=== PATIENT | female | born 2000 | race African-American/Black ===

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

== ENCOUNTER 2018-11-29 09:11 | Emergency (ER) | payer OTHER ==
[~2018-11-29] VITALS: Ht 166.4 cm; Wt 72.6 kg
[~2018-11-29 09:11] MED LIST: IBUP-1060 PO; METR500T PO
[2018-11-29 09:30] VITALS: BP 157/60
--- NOTE | 2018-11-29 10:00 | PHYS DOC ---
Past Medical History Past Medical History: Bipolar, Depression Additional Past Medical Histor: HERPES Past Surgical History: No Surgical History Alcohol Use: Occasionally Drug Use: Marijuana Adult General Chief Complaint Chief Complaint: OTHER COMPLAINTS HPI HPI Patient is a 18 year old female who presents to the ER with nausea and abdominal pain. The patient states that she is 22 weeks . The abdominal pain started this morning. Has been having nausea intermittently throughout her entire . Review of Systems Review of Systems Constitutional: Denies fever or chills [] Eyes: Denies change in visual acuity, redness, or eye pain [] HENT: Denies nasal congestion or sore throat [] Respiratory: Denies cough or shortness of breath [] Cardiovascular: No additional information not addressed in HPI [] GI: Reports abdominal pain, nausea, vomiting Denies bloody stools or diarrhea [] : Denies dysuria or hematuria [] Musculoskeletal: Denies back pain or joint pain [] Integument: Denies rash or skin lesions [] Neurologic: Denies headache, focal weakness or sensory changes [] Endocrine: Denies polyuria or polydipsia [] Complete systems were reviewed and found to be within normal limits, except as documented in this note. Allergies Allergies Allergies Coded Allergies Type Severity Reaction Last Updated Verified No Known Drug Allergies 04/30/14 No Physical Exam Physical Exam Constitutional: Well developed, well nourished, no acute distress, non-toxic appearance. [] HENT: Normocephalic, atraumatic, bilateral external ears normal, oropharynx moist, no oral exudates, nose normal. [] Eyes: PERRLA, EOMI, conjunctiva normal, no discharge. [] Neck: Normal range of motion, no tenderness, supple, no stridor. [] Abdomen: Bowel sounds normal, soft, tenderness, no masses, no pulsatile masses. [] Skin: Warm, dry, no erythema, no rash. [] Back: No tenderness, no CVA tenderness. [] Extremities: No tenderness, no cyanosis, no clubbing, ROM intact, no edema. [] Neurologic: Alert and oriented X 3, normal motor function, normal sensory function, no focal deficits noted. [] Psychologic: Affect normal, judgement normal, mood normal. [] EKG EKG [] Radiology/Procedures Radiology/Procedures [] Course & Med Decision Making Course & Med Decision Making Pertinent Labs and Imaging studies reviewed. (See chart for details) Patient is 22 weeks with acute abdominal pain. The patient is stable, however appears like patient would benefit from going to labor and delivery for evaluation. Discussed sending patient to labor and delivery with nursing staff who will send patient upstairs. Dragon Disclaimer Dragon Disclaimer This electronic medical record was generated, in whole or in part, using a voice recognition dictation system. Departure Departure Impression: Primary Impression: Abdominal pain affecting Disposition: 05 TRANSFER OTHER (sent to labor and delivery) Condition: STABLE Referrals: UNKNOWN PCP NAME (PCP) SHAY LOZA APRN Nov 29, 2018 09:59
== END 2018-11-29 10:15 | disposition home or self-care (01) ==
LOC: ER 09:11
DX: O26.891 Other specified pregnancy related conditions, first trimester (principal); R10.9 Unspecified abdominal pain; O21.9 Vomiting of pregnancy, unspecified; O99.342 Other mental disorders complicating pregnancy, second trimester; F31.9 Bipolar disorder, unspecified; Z3A.22 22 weeks gestation of pregnancy
CPT/HCPCS: 99285-25

== ENCOUNTER 2018-11-29 09:48 | Observation (INO) | payer OTHER ==
[2017-12-01 08:35] VITALS: BP 120/68
[2018-11-29] MEDS ORDERED: IV RINGERS,LACTATED 1000ML 1,000 ML IV SCH (10:17)
[2018-11-29 10:45] LABS: BILIRUBIN,URINE NEGATIVE (NEG); CLARITY,URINE CLOUDY; COLOR,URINE AMBER; NITRITE,URINE NEGATIVE (NEG); PROTEIN,URINE 30 mg/dL (NEG-TRACE)
[2018-11-29 10:50] LABS: SQUAMOUS EPITHELIAL CELL,UR MOD /LPF
[2018-11-29 10:52] LABS: BACTERIA,URINE MODERATE /HPF (0-FEW); RBC,URINE 0 /HPF (0-2)
[2018-11-29] MEDS: IV DEXTROSE 5%-LACT RINGERS 1,000 ML IV SCH ×2 (11:30→12:43)
== END 2018-11-29 15:18 | disposition home or self-care (01) ==
LOC: 3 SO LND 09:48
PROVIDERS: ADMIT Specialist; ATTEND Specialist
DX: O21.2 Late vomiting of pregnancy (principal); Z3A.24 24 weeks gestation of pregnancy
CPT/HCPCS: 81001; 87086; 96360; 96361; G0378; G0379

== ENCOUNTER 2019-03-20 05:51 | Inpatient (IN) | payer OTHER ==
[~2019-03-20] VITALS: Ht 166.4 cm; Wt 65.3 kg
[2019-03-20] MEDS ORDERED: IBUPROFEN 400 MG TABLET. PO PRN ×2 (06:30→15:30)
[2019-03-20] MEDS ORDERED: AMPICILLIN SODIUM 2 GM in IV NORMAL SALINE 100ML 100 ML IV ONE (06:30)
[2019-03-20] MEDS ORDERED: TERBUTALINE 1 MG/ML VIAL. SQ PRN (06:30)
[2019-03-20] MEDS ORDERED: ONDANSETRON PF 4 MG/2 ML VIAL. IV PRN ×2 (06:30→10:30)
[2019-03-20] MEDS ORDERED: BUTORPHANOL 2 MG/ML VIAL. IV PRN (06:30)
[2019-03-20] MEDS ORDERED: OXYTOCIN 30 UNIT/500 ML PREMIX 500 ML IV PRN ×3 (06:30→15:30)
[2019-03-20] MEDS ORDERED: 0.9 % SODIUM CHLORIDE 10 ML DISP.SYRIN. IV PRN ×2 (06:30→15:30)
[2019-03-20] MEDS ORDERED: LIDOCAINE 1% PF 30 ML VIAL. INJ PRN (06:30)
[2019-03-20 06:58] LABS: BASO # 0.1 x10^3/uL (0.0-0.2); BASO % 1 % (0-3); EOS % 0 % (0-3); HEMATOCRIT 31.3 % (36.0-47.0); HEMOGLOBIN 10.1 g/dL (12.0-15.5); LYMPH # 1.2 x10^3/uL (1.0-4.8); LYMPH % 14 % (24-48); MEAN CORPUSCULAR HEMOGLOBIN 27 pg (25-35); MEAN CORPUSCULAR HGB CONC 32 g/dL (31-37); MEAN CORPUSCULAR VOLUME 85 fL (79-100); MONO # 0.8 x10^3/uL (0.0-1.1); MONO % 9 % (0-9); NEUT # 6.5 x10^3/uL (1.8-7.7); NEUT % 76 % (31-73); PLATELET COUNT 174 x10^3/uL (140-400); RED BLOOD COUNT 3.68 x10^6/uL (3.50-5.40); RED CELL DISTRIBUTION WIDTH 13.6 % (11.5-14.5); WHITE BLOOD COUNT 8.5 x10^3/uL (4.0-11.0)
[2019-03-20] MEDS: IV RINGERS,LACTATED 1000ML 1,000 ML IV SCH ×2 (07:38→14:30)
[2019-03-20] MEDS ORDERED: IV RINGERS,LACTATED 1000ML 1,000 ML IV SCH (10:25)
[2019-03-20] MEDS ORDERED: ROPIVacaine 0.2% PF 10 ML VIAL. ONE ×2 (10:28→11:00)
[2019-03-20] MEDS ORDERED: fentaNYL PF VIAL 100 MCG/2 ML VIAL EPID PRN (10:30)
[2019-03-20] MEDS ORDERED: NALOXONE 0.4 MG/ML VIAL. IV PRN (10:30)
[2019-03-20] MEDS ORDERED: ROPIVacaine 0.2% IN 0.9%NACL PF 40 MG/20 ML DISP.SYRIN. EPID PRN (10:30)
[2019-03-20] MEDS ORDERED: BUPIVACAINE MPF 0.25% 30 ML VIAL. EPID PRN (10:30)
[2019-03-20] MEDS: L&D EPIDURAL SYRINGE 50 ML EPID PRN ×2 (10:57→13:56)
[2019-03-20] MEDS: AMPICILLIN SODIUM 1 GM in IV NORMAL SALINE 50ML 50 ML IV SCH ×3 (11:33→18:30)
[2019-03-20] MEDS ORDERED: MMR per PROTOCOL. MC PRN (15:19)
--- NOTE | 2019-03-20 15:22 | PDOC ---
VAGINAL DELIVERY DATE DATE: 03/20/19 TIME: 15:19 : 1 EDC: Mar 18, 2019 VAGINAL DELIVERY: VTX VACCUM ASSISTED: No PLACENTA: Spontaneous SEX: Male WEIGHT 8#3oz Nuchal Cord: Yes, Times 1, Loose Amniotic Fluid: Clear PAIN: Epidural EPISIOTOMY: No EXTENSION: No EBL 300cc COMPLICATIONS None CONDITION Stable Signs of Intrauterine Infectio: None Shoulder Dystocia: No DIAGNOSIS TISAM Durbin MD Mar 20, 2019 15:22
--- NOTE | 2019-03-20 15:27 | PDOC1 ---
OB - History Hx of Present Care: Good Care Ultrasounds: Normal mid trimester US Obstetrical Complications: None Medical Complications: None Past Family/Social History * Past Medical, Surgical, Family and Obstetric Histories reviewed from chart. Blood Type: O+ Rubella: Immune RPR/VDRL: Negative GBS Status: Negative HBsAG: Negative OB - Chief Complaint & HPI Date of Admission: Date of Admission: Mar 20, 2019 at 05:51 Chief Complaint/History : 1 EDC: Mar 18, 2019 Reason for admission: induction of labor Admission Nurse Assessment Rev: Yes OB - Admission Exam Physical Exam Vitals: VS - Last 72 Hours, by Label Date Time Temp Pulse Resp B/P (MAP) Pulse Ox O2 Delivery O2 Flow Rate FiO2 03/20/19 13:56 18 99 Room Air 03/20/19 10:57 16 98 Room Air HEENT: Normal, Nasal Mucosa Normal, Oropharynx Normal, Moist Membranes, Fontanelles Normal Heart: Regular Rate Lungs: Clear, Equal Abdomen: Gravid Extremities: Normal Pulses, No tenderness or swelling Reflexes: Normal Cervical Dilatation: 2cm Effacement: 25% Station: Ballotable Amniotic Fluid: Clear Heart Rate: Normal Accelerations: Accelerations Present Decelerations: No decelerations Contractions on Admission: >10 Minutes Apart Intensity: Mild Assessment/Plan Assessment/Plan TIUP Induction ACSVD SAM BOLTON MD Mar 20, 2019 15:27
[2019-03-20] MEDS ORDERED: SIMETHICONE 80 MG TAB.CHEW PO PRN (15:30)
[2019-03-20] MEDS ORDERED: ACETAMINOPHEN 325 MG TABLET. PO PRN (15:30)
[2019-03-20] MEDS ORDERED: MAGNESIUM HYDROXIDE 2,400 MG/30 ML ORAL.SUSP. PO PRN (15:30)
[2019-03-20] MEDS ORDERED: HYDROCORTISONE 1% TOPICAL OINTMENT 30GM TUBE. TP PRN (15:30)
[2019-03-20] MEDS ORDERED: diphenhydrAMINE HCL 25 MG CAPSULE PO PRN (15:30)
[2019-03-20] MEDS ORDERED: ZOLPIDEM 5 MG TABLET. PO PRN (15:30)
[2019-03-20] MEDS ORDERED: PHENYLEPH/MINERAL OIL/PETROLAT RECTAL OINTMENT TUBE. RC PRN (15:30)
[2019-03-20] MEDS ORDERED: BENZOCAINE 20% TOPICAL AEROSOL SPRAY 57GM CAN. TP PRN (15:30)
[2019-03-20] MEDS ORDERED: MAG HYDROX/ALUMINUM HYD/SIMETH 30 ML ORAL.SUSP PO PRN (15:30)
[2019-03-20] MEDS: FERROUS SULFATE 325 MG TABLET. PO SCH (17:00)
[2019-03-20] MEDS: IBUPROFEN 400 MG TABLET. PO SCH (17:17)
[2019-03-20 17:30] VITALS: BP 133/73
[2019-03-20 19:40] VITALS: BP 136/63
[2019-03-21] MEDS: IBUPROFEN 400 MG TABLET. PO SCH ×3 (01:20→16:49)
[2019-03-21 04:35] VITALS: BP 123/70
[2019-03-21] MEDS: DOCUSATE SODIUM 100 MG CAPSULE. PO PRN (08:11)
[2019-03-21] MEDS: FERROUS SULFATE 325 MG TABLET. PO SCH ×2 (08:11→16:49)
[2019-03-21 09:28] VITALS: BP 128/87
[2019-03-21 12:22] VITALS: BP 120/71
--- NOTE | 2019-03-21 13:27 | PDOC ---
Provider Note Provider Note Doing well VSS Uterus NTTP FU Pranay Vital Sign - Last 24 Hours 03/20/19 03/20/19 03/20/19 03/20/19 13:56 17:30 19:40 19:40 Temp 98.4 98.8 98.4 98.8 Pulse 78 81 Resp 18 18 16 B/P (MAP) 133/73 (93) 136/63 (87) Pulse Ox 99 100 99 O2 Delivery Room Air Room Air Room Air Room Air 03/21/19 03/21/19 03/21/19 04:35 09:28 12:22 Temp 98.3 97.4 97.8 98.3 97.4 97.8 Pulse 62 64 67 Resp 14 16 16 B/P (MAP) 123/70 (87) 128/87 (101) 120/71 (87) Pulse Ox 100 100 100 O2 Delivery Room Air Room Air Intake and Output 03/20/19 03/20/19 03/21/19 15:00 23:00 07:00 Intake Total 1100 ml Balance 1100 ml CBC - BMP 03/21/19 04:20 SAM BOLTON MD Mar 21, 2019 13:27
[2019-03-21 16:45] VITALS: BP 132/72
[2019-03-21 20:10] VITALS: BP 145/77
[2019-03-21 23:15] VITALS: BP 145/83
[2019-03-22] MEDS: IBUPROFEN 400 MG TABLET. PO SCH (01:33)
[2019-03-22 06:35] VITALS: BP 100/64
[2019-03-22] MEDS: FERROUS SULFATE 325 MG TABLET. PO SCH (08:28)
[2019-03-22] MEDS: DOCUSATE SODIUM 100 MG CAPSULE. PO PRN (08:31)
[2019-03-22 11:11] VITALS: BP 120/79
--- NOTE | 2019-03-22 11:54 | PDOC3 ---
OB DISCHARGE SUMMARY DATE OF ADMISSION: 03/20/19 DATE OF DISCHARGE: 03/22/19 REASON FOR ADMISSION: Onset of labor INTRAPARTUM PROCEDURES: Spontanous Vag Deliv DISCHARGE DIAGNOSIS: Term Delivered DISCHARGE INFORMATION: Activity (ad temi), Diet (regular), Instructions (pelvic rest x 6 wks) HOSPITAL COURSE Term gestation delivered without complications. CHRIST BARROSO Jr, MD Mar 22, 2019 11:54
[2019-03-22] MEDS ORDERED: HYDR-3164 PO (12:17)
[2019-03-22] MEDS ORDERED: NAPR-683 PO (12:17)
--- NOTE | 2019-03-22 12:18 | DISCH ---
DISCHARGE INSTRUCTIONS Condition on Discharge Condition on Discharge: Stable Activity After Discharge Activity Instructions for Disc: Activity as tolerated Lifting Instructions after Dis: No heavy lifting Driving Instructions after Dis: Do not drive today Diet after Discharge Diet after Discharge: Regular Contacting the DRChristian after DC Call your doctor for: Concerns you may have Follow-Up Follow up with: Dr. Guadalupe in 1 week CHRIST BARROSO Jr, MD Mar 22, 2019 12:18
[2019-03-22 14:57] VITALS: BP 141/71
--- NOTE | 2019-03-22 16:00 | NUR ---
Pt. was given all verbal and written discharge instructions. Pt. verbalized understanding without any questions or concerns. Pt verbalized understanding follow up appointment, post warning signs, and all other discharge instructions.
--- NOTE | 2019-03-22 16:30 | NUR ---
Pt. was escorted to hospital exit with friend. Pt. states will be staying with a her friend for 2 weeks before going home. Pt. escorted to hospital exit with NB in a secure carseat. VSS.
== END 2019-03-22 16:45 | disposition home or self-care (01) | DRG 807 ==
LOC: 3 SO LND 05:51 → 3 NORTH 17:00
PROVIDERS: ADMIT Specialist; ATTEND Specialist
PROC: 10E0XZZ Delivery of Products of Conception, External Approach (ICD-10-PCS; principal; 2019-03-20)
PROC: 3E033VJ Introduction of Other Hormone into Peripheral Vein, Percutaneous Approach (ICD-10-PCS; 2019-03-20)
PROC: 00HU33Z Insertion of Infusion Device into Spinal Canal, Percutaneous Approach (ICD-10-PCS; 2019-03-20)
PROC: 3E0R3BZ Introduction of Anesthetic Agent into Spinal Canal, Percutaneous Approach (ICD-10-PCS; 2019-03-20)
DX: O69.81X0 Labor and delivery complicated by cord around neck, without compression, not applicable or unspecified (principal); Z37.0 Single live birth; Z3A.40 40 weeks gestation of pregnancy
CPT/HCPCS: 36415; 85014; 85025; 86592; 86850; 86900; 86901; J0290; J2590; J2795; J7120; G0378

== ENCOUNTER 2019-08-06 15:43 | Emergency (ER) | payer OTHER ==
[~2019-08-06] VITALS: Ht 167.6 cm; Wt 68.0 kg
[~2019-08-06 15:43] MED LIST changes: +HYDR-3164 PO; +NAPR-683 PO
[2019-08-06] MEDS ORDERED: KETOROLAC 15 MG/ML VIAL. IVP ONE (16:00)
[2019-08-06] MEDS ORDERED: ONDANSETRON PF 4 MG/2 ML VIAL. IV ONE (16:00)
[2019-08-06] MEDS ORDERED: IV NORMAL SALINE 1000ML BAG 1,000 ML IV ONE (16:00)
[2019-08-06] MEDS ORDERED: FAMOTIDINE 20 MG/2 ML VIAL IVP ONE (16:00)
[2019-08-06] MEDS ORDERED: ACETAMINOPHEN 500 MG TABLET PO ONE (16:15)
[2019-08-06 16:27] LABS: BILIRUBIN,URINE NEGATIVE (NEG); CLARITY,URINE CLEAR; COLOR,URINE YELLOW; NITRITE,URINE NEGATIVE (NEG); PH,URINE 5.5 (<5.0-8.0); PROTEIN,URINE NEGATIVE (NEG-TRACE); UROBILINOGEN,URINE 0.2 mg/dL (0.2 mg/dL)
[2019-08-06 16:46] LABS: BACTERIA,URINE FEW /HPF (0-FEW); RBC,URINE 0 /HPF (0-2); SQUAMOUS EPITHELIAL CELL,UR MANY /LPF; WBC,URINE RARE /HPF (0-4)
[2019-08-06 16:56] LABS: BASO % 0 % (0-3); EOS % 0 % (0-3); HEMATOCRIT 39.3 % (36.0-47.0); LYMPH # 0.5 x10^3/uL (1.0-4.8); LYMPH % 8 % (24-48); MEAN CORPUSCULAR HEMOGLOBIN 28 pg (25-35); MEAN CORPUSCULAR HGB CONC 33 g/dL (31-37); MEAN CORPUSCULAR VOLUME 84 fL (79-100); MONO # 0.5 x10^3/uL (0.0-1.1); MONO % 9 % (0-9); NEUT # 4.9 x10^3/uL (1.8-7.7); NEUT % 83 % (31-73); PLATELET COUNT 233 x10^3/uL (140-400); RED BLOOD COUNT 4.69 x10^6/uL (3.50-5.40); RED CELL DISTRIBUTION WIDTH 13.1 % (11.5-14.5); WHITE BLOOD COUNT 5.9 x10^3/uL (4.0-11.0)
--- NOTE | 2019-08-06 17:22 | PHYS DOC ---
Past Medical History Past Medical History: Bipolar, Depression Additional Past Medical Histor: HERPES Past Surgical History: No Surgical History Smoking Status: Never Smoker Alcohol Use: Occasionally Drug Use: Marijuana Adult General Chief Complaint Chief Complaint: NAUSEA/VOMITING/DIARRHA HPI HPI 18-year-old female presents with report of generalized abdominal pain with as sociated nausea and vomiting which started yesterday. Patient does report some subjective fever and chills. Patient also complains of headache. Denies neck pain. Denies known sick contacts. Denies . Denies travel outside [place]. Denies diarrhea or constipation. Denies dysuria or hematuria. Review of Systems Review of Systems Constitutional: Reports subjective fever and chills Eyes: Denies redness or eye pain HENT: Denies nasal congestion or sore throat Respiratory: Denies cough or shortness of breath Cardiovascular: Denies chest pain or palpitations GI: Reports generalized abdominal pain with associated nausea and vomiting; denies diarrhea or constipation : Denies dysuria or hematuria Musculoskeletal: Denies back pain or joint pain Integument: Denies rash or skin lesions Neurologic: Reports headache; denies focal weakness or sensory changes Complete systems were reviewed and found to be within normal limits, except as documented in this note. Current Medications Current Medications Current Medications Medications (Trade) Dose Ordered Sig/Robert Start Time Stop Time Status Last Admin Dose Admin Acetaminophen (Tylenol) 500 mg 1X ONCE 08/06/19 16:15 08/06/19 16:16 DC 08/06/19 16:50 500 MG Famotidine (Pepcid Vial) 20 mg 1X ONCE 08/06/19 16:00 08/06/19 16:01 DC 08/06/19 16:49 20 MG Ketorolac Tromethamine (Toradol 15mg Vial) 15 mg 1X ONCE 08/06/19 16:00 08/06/19 16:06 DC 08/06/19 16:50 15 MG Ondansetron HCl (Zofran) 4 mg 1X ONCE 08/06/19 16:00 08/06/19 16:01 DC 08/06/19 16:49 4 MG Sodium Chloride 1,000 ml @ 1,000 mls/hr 1X ONCE 08/06/19 16:00 08/06/19 16:59 DC 08/06/19 16:49 1,000 MLS/HR Allergies Allergies Allergies Coded Allergies Type Severity Reaction Last Updated Verified No Known Drug Allergies 04/30/14 No Physical Exam Physical Exam Constitutional: Well developed, well nourished, no acute distress, non-toxic appearance HENT: Normocephalic, atraumatic, oropharynx tacky Eyes: Conjunctiva normal, no discharge Neck: Normal range of motion, no tenderness, supple, no meningeal signs Cardiovascular: Heart rate normal, regular rhythm Lungs & Thorax: Bilateral breath sounds clear to auscultation, no wheezing Abdomen: Soft, no tenderness, no guarding/rebound tenderness/distention Skin: Warm, dry, no erythema, no rash Back: No tenderness, no CVA tenderness Extremities: No tenderness, ROM intact, no edema Neurologic: Alert and oriented X 3, normal motor function, normal sensory fun ction, no focal deficits noted Psychologic: Affect normal, judgment normal Current Patient Data Vital Signs Vital Signs Date Time Temp Pulse Resp B/P (MAP) Pulse Ox O2 Delivery O2 Flow Rate FiO2 08/06/19 17:37 66 18 132/61 (84) 99 Room Air 08/06/19 16:11 100.6 100.6 Lab Values Laboratory Tests Test 08/06/19 16:09 08/06/19 16:17 08/06/19 16:42 08/06/19 16:43 Urine Collection Type Unknown Urine Color Yellow Urine Clarity Clear Urine pH 5.5 (<5.0-8.0) Urine Specific [place] >=1.030 (1.000-1.030) Urine Protein Negative mg/dL (NEG-TRACE) Urine Glucose (UA) Negative mg/dL (NEG) Urine Ketones (Stick) Negative mg/dL (NEG) Urine Blood Negative (NEG) Urine Nitrite Negative (NEG) Urine Bilirubin Negative (NEG) Urine Urobilinogen Dipstick 0.2 mg/dL (0.2 mg/dL) Urine Leukocyte Esterase Negative (NEG) Urine RBC 0 /HPF (0-2) Urine WBC Rare /HPF (0-4) Urine Squamous Epithelial Cells Many /LPF Urine Bacteria Few /HPF (0-FEW) Urine Mucus Marked /LPF POC Urine HCG, Qualitative Hcg negative (Negative) White Blood Count 5.9 x10^3/uL (4.0-11.0) Red Blood Count 4.69 x10^6/uL (3.50-5.40) Hemoglobin 13.0 g/dL (12.0-15.5) Hematocrit 39.3 % (36.0-47.0) Mean Corpuscular Volume 84 fL (79-100) Mean Corpuscular Hemoglobin 28 pg (25-35) Mean Corpuscular Hemoglobin Concent 33 g/dL (31-37) Red Cell Distribution Width 13.1 % (11.5-14.5) Platelet Count 233 x10^3/uL (140-400) Neutrophils (%) (Auto) 83 % (31-73) H Lymphocytes (%) (Auto) 8 % (24-48) L Monocytes (%) (Auto) 9 % (0-9) Eosinophils (%) (Auto) 0 % (0-3) Basophils (%) (Auto) 0 % (0-3) Neutrophils # (Auto) 4.9 x10^3/uL (1.8-7.7) Lymphocytes # (Auto) 0.5 x10^3/uL (1.0-4.8) L Monocytes # (Auto) 0.5 x10^3/uL (0.0-1.1) Eosinophils # (Auto) 0.0 x10^3/uL (0.0-0.7) Basophils # (Auto) 0.0 x10^3/uL (0.0-0.2) Sodium Level 137 mmol/L (136-145) Potassium Level 3.5 mmol/L (3.5-5.1) Chloride Level 103 mmol/L (98-107) Carbon Dioxide Level 26 mmol/L (21-32) Anion Gap 8 (6-14) Blood Urea Nitrogen 16 mg/dL (7-20) Creatinine 1.0 mg/dL (0.6-1.0) Estimated GFR (Cockcroft-Gault) 85.5 BUN/Creatinine Ratio 16 (6-20) Glucose Level 90 mg/dL (70-99) Calcium Level 9.0 mg/dL (8.5-10.1) Magnesium Level 1.7 mg/dL (1.8-2.4) L Total Bilirubin 0.4 mg/dL (0.2-1.0) Aspartate Amino Transferase (AST) 25 U/L (15-37) Alanine Aminotransferase (ALT) 26 U/L (14-59) Alkaline Phosphatase 80 U/L (46-116) Total Protein 7.8 g/dL (6.4-8.2) Albumin 3.7 g/dL (3.4-5.0) Albumin/Globulin Ratio 0.9 (1.0-1.7) L Lipase 73 U/L (73-393) Influenza Type A Antigen Negative (NEGATIVE) Influenza Type B Antigen Negative (NEGATIVE) Laboratory Tests 08/06/19 16:42 Laboratory Tests 08/06/19 16:42 EKG EKG [] Radiology/Procedures Radiology/Procedures [] Course & Med Decision Making Course & Med Decision Making Pertinent Lab studies reviewed. (See chart for details) Nontoxic patient presents with generalized abdominal pain with associated nausea and vomiting. Patient also complains of subjective fever and chills as well as headache. Patient noted to be febrile. Fever addressed. Abdomen non-peritoneal. Symptomatic treatment provided. Labs obtained and posted to chart. WBC within normal limits. Rapid influenza negative. IV fluid hydration provided. Patient reports interval improvement of symptoms. Patient stable for discharge with outpatient follow-up with PCP. Discussed findings and plan with patient, who acknowledges understanding and agreement. Dragon Disclaimer Dragon Disclaimer This electronic medical record was generated, in whole or in part, using a voice recognition dictation system. Departure Departure Impression: Primary Impression: Nausea & vomiting Disposition: 01 HOME, SELF-CARE Condition: IMPROVED Referrals: NO PCP (PCP) Patient Instructions: Clear Liquid Diet, [id number], Nausea and Vomiting, [id number] Scripts Hyoscyamine Sulfate (LEVSIN-SL) 0.125 Mg Tab.subl 0.125 MG SL Q4-6HRS PRN for PAIN, #20 TAB Prov: SHAY MESA DO 08/06/19 Ondansetron (ONDANSETRON ODT) 4 Mg Tab.rapdis 1 TAB PO PRN Q6-8HRS PRN for NAUSEA, #16 TAB Prov: SHAY MESA DO 08/06/19 Famotidine (PEPCID) 20 Mg Tablet 20 MG PO BID for 5 Days, #10 TAB Prov: SHAY MESA DO 08/06/19 Problem Qualifiers Primary Impression: Nausea & vomiting Vomiting type: unspecified Vomiting Intractability: unspecified Qualified Codes: R11.2 - Nausea with vomiting, unspecified SHAY MESA DO Aug 06, 2019 17:21
[2019-08-06 17:27] LABS: INFLUENZA A PATIENT NEGATIVE (NEGATIVE); INFLUENZA B PATIENT NEGATIVE (NEGATIVE)
[2019-08-06 17:33] LABS: ALBUMIN 3.7 g/dL (3.4-5.0); ALBUMIN/GLOBULIN RATIO 0.9 (1.0-1.7); GFR 85.5; MAGNESIUM 1.7 mg/dL (1.8-2.4); POTASSIUM 3.5 mmol/L (3.5-5.1); TOTAL BILIRUBIN 0.4 mg/dL (0.2-1.0); TOTAL PROTEIN 7.8 g/dL (6.4-8.2)
[2019-08-06 17:37] VITALS: BP 132/61
[2019-08-06] MEDS ORDERED: FAMO-63 PO (17:47)
[2019-08-06] MEDS ORDERED: ONDA4TAB12 PO (17:47)
[2019-08-06] MEDS ORDERED: HYOS0.1265 SL (17:47)
== END 2019-08-06 18:17 | disposition home or self-care (01) ==
LOC: ER 15:43
DX: R11.2 Nausea with vomiting, unspecified (principal); R10.84 Generalized abdominal pain; R50.9 Fever, unspecified; R51 Headache; F31.9 Bipolar disorder, unspecified
CPT/HCPCS: 36415; 80053; 81001; 81025; 83690; 83735; 85025; 87804; 96361; 96374; 96375; 99284; J1885; J2405; J3490; J7030

== ENCOUNTER → 2020-01-30 | Outpatient (CLI) | payer OTHER ==
[~2020-01-30] MED LIST changes: +FAMO-63 PO; +HYOS0.1265 SL; +ONDA4TAB12 PO
--- NOTE | 2020-01-30 09:17 | KCIC ---
BREAST BILATERAL Clinical Indication: 19-year-old female. Breast-feeding approximately 2-3 months ago. Lump and right breast retroareolar. Pain bilaterally behind the nipple. Reason: BREAST LUMP / Spl. Instructions: / History: Comparison: None. TECHNIQUE: Real-time ultrasound imaging of the right and left breast is performed. Findings: Right: There is no retroareolar ductal ectasia. 9:00 retroareolar there is a 5 x 3 mm well-circumscribed, parallel hypoechogenicity with no posterior acoustic features. Color Doppler interrogation is negative. Finding is probably a complicated cyst or fibrocystic change. No solid mass or architectural distortion is seen. There are no abnormal axillary lymph nodes. Left: 10:00 to 2:00 is the area of pain. There is no retroareolar ductal ectasia. No solid mass or architectural distortion. There are no abnormal axillary lymph nodes. IMPRESSION: 1. There are no suspicious sonographic findings. Recommend clinical follow-up for patient's pain. 2. BI-RADS category 2, benign findings. Electronically signed by: Ralph Renteria MD (01/30/2020 9:14 AM) [id number]
== END | disposition home or self-care (01) ==
LOC: KCIC US 08:09
PROVIDERS: ATTEND Nurse Practitioner Women's Health
DX: N64.4 Mastodynia (principal)
CPT/HCPCS: 76641